=== PATIENT | male | born 1995 | race Caucasian/White ===

== ENCOUNTER 2021-03-24 12:00 | Emergency (ER) | payer OTHER ==
[2021-03-24] MEDS ORDERED: BACTROBAN OINT22 GM TOP (14:01)
[2021-03-24] MEDS ORDERED: CEPHALEXIN500 M1 PO (14:01)
[2021-03-24] MEDS ORDERED: BACTRIM DS TAB1 EACH PO (14:01)
== END 2021-03-24 14:44 | disposition home or self-care (01) ==
LOC: ER1 12:00
DX: S50.812A Abrasion of left forearm, initial encounter (principal); L81.8 Other specified disorders of pigmentation; F17.200 Nicotine dependence, unspecified, uncomplicated; W22.8XXA Striking against or struck by other objects, initial encounter
CPT/HCPCS: 90471; 90715; 99283

== ENCOUNTER 2021-11-26 16:08 | Emergency (ER) | payer SELFPAY ==
[~2021-11-26 16:08] MED LIST: BACTRIM DS TAB1 EACH PO; BACTROBAN OINT22 GM TOP; CEPHALEXIN500 M1 PO
[2021-11-26] MEDS ORDERED: HYDROCODON-ACE1 EAC4 PO (16:29)
[2021-11-26] MEDS ORDERED: AMOX TR-K CLV1 EAC4 PO (16:29)
[2021-11-26] MEDS ORDERED: IBUPROFEN600 MG PO (16:51)
== END 2021-11-26 16:58 | disposition home or self-care (01) ==
LOC: ER1 16:08
DX: R68.84 Jaw pain (principal); F17.200 Nicotine dependence, unspecified, uncomplicated
CPT/HCPCS: 99283